=== PATIENT | female | born 1970 | race Caucasian/White ===

== ENCOUNTER → 2016-12-26 | Outpatient (CLI) | payer OTHER ==
[~2016-12-26] MED LIST: LEVO150T PO; RANI150T3 PO
--- NOTE | 2016-12-27 12:31 | MAMMOGRAPHY REPORT ---
BILATERAL DIGITAL SCREENING MAMMOGRAM TOMOSYNTHESIS WITH CAD: 12/26/2016 CLINICAL HISTORY: Routine screening. Patient has no complaints. TECHNIQUE: Breast tomosynthesis in addition to standard 2D mammography was performed. Current study was also evaluated with a Computer Aided Detection (CAD) system. COMPARISON: Comparison is made to exams dated: 01/15/2013 mammogram, 08/10/2011 mammogram, 08/14/2011 mammogram, and 08/27/2011 stereotactic biopsy - [facility]. BREAST COMPOSITION: The tissue of both breasts is heterogeneously dense, which may obscure small ma sses. FINDINGS: There is a new grouping of microcalcifications with associated 5 mm mass in the 1:00 to 2 :00 middle one third of the right breast, for which additional spot magnification views and possibly ultrasound are recommended. There is a 7 mm asymmetry in the medial anterior right breast, only se en on the CC view which could represent normal overlapping tissue, although additional spot compress ion tomosynthesis views and possibly ultrasound are recommended. There are also possibly increasing microcalcifications in the upper outer quadrant of the left breast warranting additional spot magnif ication views. There is a stable metallic biopsy marker in the upper outer quadrant of the right breast. A few oth er scattered benign-appearing microcalcifications. No other suspicious mass, architectural distortio n or cluster of microcalcifications is seen. IMPRESSION: ACR BI-RADS CATEGORY 0: INCOMPLETE EVALUATION: NEED ADDITIONAL IMAGING EVALUATION There are bilateral microcalcifications that need additional spot magnification views, and a 7 mm as ymmetry in the right breast need additional imaging evaluation. The patient will be called to schedule an appointment. Approximately 10% of breast cancers are not detected with mammography. A negative mammographic repor t should not delay biopsy if a clinically suggestive mass is present. Lorenza Kc M.D. ay/:12/26/2016 15:38:29 Risk Investigator: Jayda ARCHIBALD(R)(M), [facility] letter sent: Addl Imaging 0 BI-RADS Code: ACR BI-RADS Category 0: Incomplete Evaluation: Need Additional Imaging Evaluation
== END | disposition home or self-care (01) ==
LOC: C.MAMM 11:45
PROVIDERS: ATTEND Family Medicine Adult Medicine
DX: Z12.31 Encounter for screening mammogram for malignant neoplasm of breast (principal); R92.1 Mammographic calcification found on diagnostic imaging of breast; N64.9 Disorder of breast, unspecified

== ENCOUNTER → 2017-01-08 | Outpatient (CLI) | payer OTHER ==
--- NOTE | 2017-01-08 15:22 | MAMMOGRAPHY REPORT ---
BILATERAL DIGITAL DIAGNOSTIC MAMMOGRAM TOMOSYNTHESIS AND TARGETED RIGHT ULTRASOUND: 01/08/2017 CLINICAL HISTORY: 46-year-old woman called back from screening mammography for bilateral microcalcif ications and possible architectural distortion in the right breast. Patient has a history of prior stereotactic biopsy in the lateral right breast which yielded benign pathology. TECHNIQUE: Spot magnification CC and ML views of each breast, spot compression right CC tomosynthes is images were obtained. COMPARISON: Comparison is made to exams dated: 12/26/2016 mammogram, 01/15/2013 mammogram, 08/14/2011 mammogram, and 08/10/2011 mammogram - [facility]. BREAST COMPOSITION: The tissue of both breasts is heterogeneously dense, which may obscure small ma sses. FINDINGS: Spot magnification views of the right breast demonstrate a new cluster of pleomorphic dameon rocalcifications with associated 4.5 mm mass in the 3:00 middle one third of the breast. On the spo t magnification right CC view, there is a 4.9 mm nodular asymmetry medial to the mass with associate d clustered calcification. There is effacement of the questionable architectural distortion anterio r to the clustered calcifications, and there is no persistent distortion on the spot compression laura osynthesis view performed in this area. Further evaluation with ultrasound was performed in the med ial right breast. Spot magnification views of the left breast demonstrate round, punctate and amorphous microcalcifica tions scattered throughout the entire visualized breast and a benign coarse calcification in the 6:0 0 subareolar left breast. Although these microcalcifications are increasingly conspicuous compared to the most recent mammogram performed in 2013 they are not highly suspicious and may simply represe nt fibrocystic changes. Nevertheless, a short interval follow-up is recommended to ensure stability in 6 months, given the increased conspicuity. Targeted ultrasound was performed in the medial right breast including the 12:00 and 6:00 axes. In the 6:00 periareolar breast, there is a lobulated mixed hypoechoic and anechoic parallel mass with i nternal echogenic reflectors measuring approximate 4.6 x 1.6 x 5.3 mm. This most likely represents a, located cyst with internal calcification/milk of calcium. In the 3:00 right breast, 1 cm from th e nipple, there is another hypoechoic to anechoic mass with internal echogenic reflectors. This may possibly represent the new mass with associated pleomorphic calcification in the 10:00 right breast . It measures 4.6 x 3.4 x 3.4 mm. No other mass was seen medial to this mass in the 3:00 breast to correlate with the second, 4.9 mm nodular asymmetry identified mammographically. In the 10:00 righ t breast, 2 cm from the nipple, there is another mixed lobulated hypoechoic and anechoic mass with i nternal echogenic reflectors, possibly representing another cyst with internal milk of calcium, suresh uring approximately 5.6 x 2.5 x 4.0 mm. Although all of the above findings could possibly represent benign fibrocystic changes, would recomm end stereotactic biopsy of the new cluster of pleomorphic microcalcifications with associated mass t o exclude the possibility of nontargeted biopsy. Then pending benign pathology results, could follo w the probably benign masses in the 3:00, 6:00 and 10:00 axes of the right breast with repeat ultras ound in 6 months, and also reassess the probably benign microcavitation indications throughout the l eft breast in 6 months. IMPRESSION: ACR BI-RADS CATEGORY 4: SUSPICIOUS, TARGETED ULTRASOUND ACR BI-RADS CATEGORY 4: SUSPICI OUS 1. Stereotactic guided right breast biopsy is recommended for a new small 4 mm mass with associated pleomorphic microcalcification in the 3:00 right breast. 2. Pending benign pathology results, repeat bilateral diagnostic mammograms including spot magnific ation views of the left breast, and repeat right breast ultrasound are recommended to ensure stabili ty of the other findings in 6 months time. These results and recommendations were discussed with the patient at the time of the exam. She tent atively scheduled the right breast stereotactic biopsy prior to leaving our department. Approximately 10% of breast cancers are not detected with mammography. A negative mammographic repor t should not delay biopsy if a clinically suggestive mass is present. Lorenza Kc M.D. ay/:01/08/2017 11:43:29 Gate Manager: Jayda DELGADO)(M), [facility] letter sent: Abnormal 4/5 BI-RADS Code: ACR BI-RADS Category 4: Suspicious Ultrasound BI-RADS: ACR BI-RADS Category 4: Suspic ious
== END | disposition home or self-care (01) ==
LOC: C.MAMM 09:07
PROVIDERS: ATTEND Family Medicine Adult Medicine
DX: R92.1 Mammographic calcification found on diagnostic imaging of breast (principal); N64.89 Other specified disorders of breast; N63 Unspecified lump in breast; R92.0 Mammographic microcalcification found on diagnostic imaging of breast

== ENCOUNTER → 2017-01-24 | Outpatient (CLI) | payer OTHER ==
--- NOTE | 2017-01-24 13:19 | Discharge Instructions ---
Discharge Instructions Procedure Procedure Date: Jan 24, 2017. Reason for visit: Right Calcs/Mass. Discharge Discharge Date: Jan 24, 2017. Discharge Diagnosis: status post breast biopsy Instructions Activity Recommendations: Additional Limitations (see below) Return to School/Work: no limitations Recommended Home Diet: No Limitations Provider Instructions: ACTIVITY RECOMMENDATIONS: * No lifting, pushing, pulling or exercising the affected side for three days. RETURN TO SCHOOL/WORK: * You may return to work/school after the procedure, but do not perform any strenuous activities for 24 to 48 hours. MEDICATIONS: * Tylenol (two 325 mg) every four to six hours if needed for mild pain (if not allergic to Tylenol). DIET: * Resume previous diet. SPECIAL CARE INSTRUCTIONS: * Keep biopsy site dry for 24 hours. May shower after 24 hours, but do not soak (bathe) incision. * May remove Tegaderm (plastic patch) tomorrow AFTER showering. * Leave the steri-strips on for one week. Allow the steri-strips to fall off by themselves. If not off after one week, you may remove them. You may place a Bandaid crosswise over the strips, if desired. * Apply ice 10 minutes on and 10 minutes off as needed. * Wear a bra at bedtime to sleep more comfortably for 2-3 days. * Your referring physician should have the results after approximately 5 to 7 business days. * Call for unusual bleeding, fever, drainage, etc or if you have any questions call during normal business hours or after hours call Dr Huff, [phone]. FOLLOW UP VISIT: Follow-up with Referring Physician as scheduled. Allergies Coded Allergies: Penicillin G (Verified Allergy, Intermediate, HIVES, 02/07/10) Scarlett Youngy Recommendations: Call your doctor if: * Temperature above 101 degrees * Pain not relieved by pain medicine ordered * There is increased drainage or redness from any incision * You have any unanswered questions or concerns. Your Doctors Instructions noted above were prepared by provider Yi Huff. Patient Signature Section: Patient Instructions Signature Page Jeniffer Scott Patient (or Guardian) Signature/Date: I have read and understand the instructions given to me by my caregivers. Caregiver/RN/Doctor Signature/Date: The above-named patient and/or guardian has received patient instructions on this date. + Original Patient Signature Page (only) stays with chart. Please make copy for patient.
--- NOTE | 2017-01-24 15:08 | MAMMOGRAPHY REPORT ---
UNILATERAL RIGHT DIGITAL DIAGNOSTIC MAMMOGRAM: 01/24/2017 CLINICAL HISTORY: Status post stereotactic biopsy of right breast calcifications. TECHNIQUE: Postprocedural right CC and ML views were obtained. COMPARISON: Comparison is made to exams dated: 01/08/2017 mammogram, 12/26/2016 mammogram, 01/15/2013 m ammogram, and 08/14/2011 mammogram - [facility]. BREAST COMPOSITION: The tissue of the right breast is heterogeneously dense, which may obscure smal l masses. FINDINGS: A new biopsy marker clip is seen at the site of the biopsied calcifications in the right 3:00 breast. No significant postbiopsy hematoma is seen. IMPRESSION: POST PROCEDURE IMAGING FOR MARKER PLACEMENT New biopsy marker clip status post stereotactic biopsy of right 3:00 breast calcifications. Patholo gy results are pending. Pending benign pathology results, recommend follow-up bilateral diagnostic mammograms and possible ultrasound in 6 months to reevaluate the other previously described findings . Approximately 10% of breast cancers are not detected with mammography. A negative mammographic repor t should not delay biopsy if a clinically suggestive mass is present. Yi Huff M.D. /:01/24/2017 13:38:14 Literacy Consultant: Jayda ARCHIBALD(Comfort)(Fidel), [facility] BI-RADS Code: Post Procedure Imaging For Marker Placement
--- NOTE | 2017-01-24 15:08 | MAMMOGRAPHY REPORT ---
THIS REPORT HAS BEEN AMENDED. STEREOTACTIC GUIDED BIOPSY RIGHT BREAST: 01/24/2017 CLINICAL HISTORY: Indeterminate calcifications in the right 3:00 breast. PATIENT CONSENT: The procedure, risks, benefits, and alternatives of stereotactic biopsy with clip p lacement were discussed with the patient, and verbal and written consent was obtained. A timeout wa s performed immediately prior to the procedure. PROCEDURE DESCRIPTION: With stereotactic guidance, aseptic technique, and lidocaine as a local anest hetic (1% lidocaine to anesthetize the skin and 1% lidocaine with epinephrine to anesthetize the magno per tissues), the area of concern was sampled multiple times with a 9-gauge vacuum-assisted biopsy n eedle (Suros Eviva petite). The path of approach was medial. The specimen radiograph demonstrates calcifications to be present in the samples. A metallic marker clip was placed at the biopsy site. This was confirmed on postprocedure mammograms. Direct pressure was applied at the biopsy site and hemostasis was readily achieved. The patient tolerated the procedure without complication. She wa s given wound care instructions. COMPARISON: Comparison is made to exams dated: 01/08/2017 mammogram, 12/26/2016 mammogram, 01/15/2013 m ammogram, and 08/14/2011 mammogram - [facility]. IMPRESSION: STEREOTACTIC GUIDED BIOPSY Stereotactic biopsy of indeterminate calcifications in the right 3:00 breast, with clip placement. The patient will receive pathology results from her referring provider. Yi Huff M.D. ah/:01/24/2017 13:20:15 Clinical Ob: Jayda ARCHIBALD(Comfort)(Fidel), [facility] AMENDMENT: 02/06/2017 Yi Huff M.D. Pathology from right breast stereotactic biopsy was reviewed on 02/06/2017. The pathology shows fibro cystic changes with calcium oxalate type calcifications and usual ductal hyperplasia. The pathology is concordant with the imaging findings. As stated on the prior diagnostic mammogram report, recom mend repeat bilateral diagnostic mammograms and repeat right breast ultrasound in 6 months to ensure stability of other bilateral findings.
== END | disposition home or self-care (01) ==
LOC: C.MAMM 12:14
PROVIDERS: ATTEND Family Medicine Adult Medicine
DX: R92.1 Mammographic calcification found on diagnostic imaging of breast (principal); N60.91 Unspecified benign mammary dysplasia of right breast

== ENCOUNTER → 2017-12-10 | Outpatient (CLI) | payer OTHER ==
--- NOTE | 2017-12-10 13:30 | MAMMOGRAPHY REPORT ---
BILATERAL DIGITAL DIAGNOSTIC MAMMOGRAM TOMOSYNTHESIS WITH CAD AND TARGETED BILATERAL ULTRASOUND: 2017 CLINICAL HISTORY: 47-year-old woman presents for follow-up in both breasts. She had a stereotactic g uided biopsy in the medial right breast on 01/24/2017 which yielded benign pathology results. She pr esents for follow-up of additional microcalcifications in the left breast and sonographic findings in the right breast. Patient reports approximately 20 pound weight loss since prior mammograms. TECHNIQUE: Bilateral CC and MLO 2-D and tomosynthesis images, spot magnification left CC and ML views were obtained. Current study was also evaluated with a Computer Aided Detection (CAD) system. COMPARISON: Comparison is made to exams dated: 01/24/2017 stereotactic biopsy, 01/24/2017 mammogram, ultrasound, 01/08/2017 mammogram, 12/26/2016 mammogram, and 01/15/2013 mammogram - [facility] [address]. BREAST COMPOSITION: The tissue of both breasts is heterogeneously dense, which may obscure small mas ses. FINDINGS: There are 2 stable biopsy marker clips in the right breast within the upper outer and lower inner quadrants. A few scattered rounded punctate benign-appearing microcalcifications in the right breast. No suspicious grouping or cluster of calcifications, new mass, asymmetry or area of archite ctural distortion. There are scattered and grouped faint punctate microcalcifications as well as coarse calcifications i n the left breast. Based on the spot magnification views, the 3 dominant groupings of punctate and a morphous microcalcifications in the upper outer, retroareolar and central breast are stable comparing to the spot magnification views obtained on 01/08/2017. Another 12 month follow-up diagnostic mammo gram including repeat spot magnification views is recommended to ensure longer stability. No other n ew suspicious masses, calcifications, areas of architectural distortion or asymmetries are seen in th e left breast. There are a few circumscribed round and oval fluctuating masses that most likely repr esent cysts. Targeted ultrasound was performed in the 3:00, 6:00 and 10:00 axes of the right breast and throughout the inferior left breast to assess for a circumscribed oval 5 mm mass identified on the MLO view. T hroughout the inferior left breast, no suspicious solid or cystic mass is seen. A few scattered cyst s are seen in the 6:00 axis. In the right 6:00 axis there is a lobulated hypoechoic and anechoic rosas id versus cystic mass measuring 4.2 x 1.6 x 5.1 mm. This has not significantly changed compared to t he prior ultrasound at which time it measured 4.6 x 1.6 x 5.3 mm. In the 3:00 right breast, 1 cm fro m the nipple, a mass is no longer identified, confirming benignity. In the 10:00 right breast, 2 cm from the nipple a mixed hypoechoic and anechoic parallel oriented mass is again identified measuring 7.0 x 3.0 x 4.0 mm. This has not significantly changed comparing to the prior ultrasound at which ti me it measured 5.6 x 2.5 x 4.0 mm, given slight differences in measuring technique. Given that these masses most likely represent complicated cysts and fibrocystic change, but they do not fit the crite joselito for benign simple cysts another 12 month follow-up targeted ultrasound in the 6:00 and 10:00 axes of the right breast is recommended to ensure longer stability. IMPRESSION: ACR-BI-RADS CATEGORY 3: PROBABLY BENIGN, TARGETED ULTRASOUND ACR-BI-RADS CATEGORY 3: PRO BABLY BENIGN 1. Stable bilateral mammograms including stable post biopsy changes in the right breast and stable g roupings of faint punctate and amorphous microcalcifications in the left breast. 2. Fluctuating nodularity in the left breast most likely represents fibrocystic change. 3. Stable to resolved hypoechoic benign-appearing solid versus cystic masses in the right breast aga in noted on targeted ultrasound. 4. Overall, bilateral diagnostic mammograms including spot magnification views of the left breast an d repeat targeted ultrasound in the right breast are recommended in 12 months to ensure longer stabil ity of the above probably benign findings. These results and recommendations were discussed with the patient at the time of the exam. She tenta tively scheduled a follow-up appointment prior to leaving our department. Approximately 10% of breast cancers are not detected with mammography. A negative mammographic report should not delay biopsy if a clinically suggestive mass is present. Lorenza Kc M.D. ay/:12/10/2017 11:06:13 Deck Engine Operator: Maggi ARCHIBALD(Comfort)(M), [facility] [address] letter sent: Follow Up Recommended 3 BI-RADS Code: ACR-BI-RADS Category 3: Probably Benign Ultrasound BI-RADS: ACR-BI-RADS Category 3: Pr obably Benign
== END | disposition home or self-care (01) ==
LOC: C.MAMM 08:30
PROVIDERS: ATTEND Family Medicine
DX: R92.0 Mammographic microcalcification found on diagnostic imaging of breast (principal)